=== PATIENT | female | born 2000 | race Caucasian/White ===

== ENCOUNTER 2023-10-14 07:28 | Day surgery (SDC) | payer MEDICAID ==
[~2023-10-14] VITALS: Ht 172.7 cm; Wt 90.7 kg
[2023-10-14 08:19] LABS: HCG,QUAL RESULT NEGATIVE (NEGATIVE)
[2023-10-14] MEDS ORDERED: DEXAMETHASONE SOD PHOSPHATE 4 MG/ML VIAL ONE (08:38)
[2023-10-14] MEDS ORDERED: PROPOFOL 200MG/ 20ML VIAL (DIPRIVAN) IV ONE (08:38)
[2023-10-14] MEDS ORDERED: NS 250 ML IV.SOLN IV ONE (08:38)
[2023-10-14] MEDS ORDERED: GLYCOPYRROLATE 0.2 MG/ML VIAL ONE (08:38)
[2023-10-14] MEDS ORDERED: LIDOCAINE 1% 10 MG/ML, 20 ML MDV ONE (08:38)
[2023-10-14] MEDS ORDERED: MUPIROCIN 2% TOPICAL OINTMENT 22 GM ONE (08:38)
[2023-10-14] MEDS ORDERED: EPINEPHrine HCL 1 MG/ML VIAL ONE (08:38)
[2023-10-14] MEDS ORDERED: ONDANSETRON HCL 4 MG/2 ML VIAL ONE (08:38)
[2023-10-14] MEDS ORDERED: fentaNYL CITRATE/PF 100 MCG/2 ML AMP ONE (08:38)
[2023-10-14] MEDS ORDERED: MIDAZOLAM HCL 5 MG/5 ML VIAL ONE (08:38)
[2023-10-14] MEDS ORDERED: SUCCINYLCHOLINE CHLORIDE 20 MG/ML(QUELICIN) ONE (08:38)
[2023-10-14] MEDS ORDERED: OXYMETAZOLINE HCL 0.05% NASAL SPRAY NS ONE (08:38)
[2023-10-14] MEDS ORDERED: METOCLOPRAMIDE HCL 10 MG/2 ML VIAL ONE (08:38)
[2023-10-14] MEDS ORDERED: ROCURONIUM BROMIDE 10 MG/ML (ZEMURON) ONE (08:38)
[2023-10-14] MEDS ORDERED: SEVOFLURANE 15 MIN GAS INH ONE (08:38)
[2023-10-14] MEDS ORDERED: NEOSTIGMINE METHYLSULFATE 1 MG/ML, 10 ML VIAL ONE (08:38)
[2023-10-14] MEDS ORDERED: NALOXONE HCL 0.4 MG/ML AMP (NARCAN) IVP PRN (10:00)
[2023-10-14] MEDS ORDERED: HYDROmorphone 1 MG/ML INJ. CARTRIDGE IVP PRN (10:00)
[2023-10-14] MEDS ORDERED: METOCLOPRAMIDE HCL 10 MG/2 ML VIAL IVP PRN (10:00)
[2023-10-14] MEDS ORDERED: LR 1,000 ML IV SCH (10:00)
[2023-10-14] MEDS ORDERED: MEPERIDINE HCL/PF 25 MG/ML DISP.SYRIN IVP PRN (10:00)
[2023-10-14 12:13] VITALS: O2SAT 100
[2023-10-14 14:17] VITALS: BP_SYST 114; PULSE 86; RESP 17
== END 2023-10-14 14:00 | disposition home or self-care (01) ==
LOC: SDS 07:28 → SMU 07:29 → SDS 14:00
PROVIDERS: ATTEND Otolaryngology
DX: D38.5 Neoplasm of uncertain behavior of other respiratory organs (principal); J34.2 Deviated nasal septum; J34.89 Other specified disorders of nose and nasal sinuses; N89.8 Other specified noninflammatory disorders of vagina
CPT/HCPCS: 30140; 31240; 30465; 84703; 88304; 88311; J1100; J0171; J3490; J2765; J2250; J2710; J2405; J2704; J0330; J3010; J7050; J2001